=== PATIENT | female | born 1995 | race African-American/Black ===

== ENCOUNTER 2018-08-04 10:11 | Emergency (ER) | payer MEDICAID ==
[~2018-08-04] VITALS: Ht 167.6 cm; Wt 76.4 kg
[~2018-08-04 10:11] MED LIST: GLUCOPHAGE500 MG PO; IBUPROFEN600 MG PO; PERCOCET 5-3251 TAB PO; PRENATAL COMPLE1 TAB PO
[2018-08-04 10:13] VITALS: Ht 167.6 cm; Wt 76.4 kg
[2018-08-04 10:49] LABS: BASOPHILS 0.6 % (0-2); EOSINOPHILS 1.2 % (0-7); HEMATOCRIT 41.5 % (36.0-48.0); HEMOGLOBIN 13.7 g/dL (12-16); IMMATURE GRANULOCYTES 0.2 % (0-5); MCH 26.4 pg (26.0-34.0); MEAN PLATELET VOLUME 9.7 fL (7.4-10.4); MONOCYTES 6.5 % (2-11); NEUTROPHILS 72.5 % (40-80); PLATELET COUNT 368 10x3/uL (130-400); RBC 5.19 10x6/uL (4.00-5.40); RDW 13.6 % (11.5-14.5); WBC 10.9 10x3/uL (4.8-10.8)
[2018-08-04 10:55] LABS: ALBUMIN 3.5 g/dL (3.4-5.0); ALKALINE PHOSPHATASE 79 U/L (46-116); ALT (SGPT) 16 U/L (10-68); BILIRUBIN - TOTAL 0.45 mg/dL (0.2-1.3); CALC OSMOLALITY 278 mosm/kg (275-300); CARBON DIOXIDE 26.8 mmol/L (21.0-32.0); CHLORIDE - SERUM 101 mmol/L (98-107); CREATININE - SERUM 0.6 mg/dL (0.6-1.3); PROTEIN - SERUM 8.4 g/dL (6.4-8.2); SODIUM 136 mmol/L (136-145); UREA NITROGEN 4 mg/dL (7-18); eGFR NON AFRICAN AMERICAN > 90 mL/min (90-120)
[2018-08-04 10:56] LABS: GLUCOSE 273 mg/dL (74-106)
[2018-08-04 11:06] LABS: CREATINE KINASE 140 UL (21-215); MAGNESIUM - SERUM 1.6 mg/dL (1.8-2.4); TROPONIN-I < 0.017 ng/mL (0.000-0.060)
[2018-08-04 11:11] LABS: APTT 21.3 SECONDS (22.8-39.4); INR 1.02 (0.85-1.17); PROTIME 12.9 SECONDS (11.6-15.0)
[2018-08-04 11:14] LABS: AMYLASE - SERUM 55 U/L (25-115); LIPASE 131 U/L (73-393)
[2018-08-04 12:15] LABS: APPEARANCE CLEAR (CLEAR); BILIRUBIN NEGATIVE (NEGATIVE); COLOR YELLOW (YELLOW); GLUCOSE 1000 mg/dL (NEGATIVE); KETONE NEGATIVE (NEGATIVE); NITRITE NEGATIVE (NEGATIVE); PROTEIN NEGATIVE (NEGATIVE); SPECIFIC GRAVITY 1.015 (1.005-1.020); UROBILINOGEN NORMAL (NORMAL)
[2018-08-04] MEDS ORDERED: ZANTAC300 MG PO (13:25)
[2018-08-04] MEDS ORDERED: MAG-OX 400 MG400 MG PO (13:25)
[2018-08-04] MEDS ORDERED: GLUCOPHAGE500 MG PO (13:25)
[2018-08-04] MEDS ORDERED: PROTONIX20 MG PO (13:25)
[2018-08-04 14:33] VITALS: BP 133/68
== END 2018-08-04 14:35 | disposition home or self-care (01) ==
LOC: D.ER 10:11
PROVIDERS: Family Medicine
DX: K21.0 Gastro-esophageal reflux disease with esophagitis (principal); E83.42 Hypomagnesemia; E11.65 Type 2 diabetes mellitus with hyperglycemia

== ENCOUNTER 2018-11-22 14:56 | Emergency (ER) | payer MEDICAID ==
[~2018-11-22] VITALS: Ht 167.6 cm; Wt 76.4 kg
[~2018-11-22 14:56] MED LIST changes: +MAG-OX 400 MG400 MG PO; +PROTONIX20 MG PO; +ZANTAC300 MG PO
[2018-11-22 15:05] VITALS: BP 118/60; Ht 167.6 cm; Wt 76.4 kg
[2018-11-22] MEDS ORDERED: TORADOL10 MG PO (17:57)
== END 2018-11-22 18:46 | disposition home or self-care (01) ==
LOC: D.ER 14:56
DX: G43.909 Migraine, unspecified, not intractable, without status migrainosus (principal)

== ENCOUNTER 2019-01-31 21:39 | Emergency (ER) | payer MEDICAID ==
[~2019-01-31] VITALS: Ht 167.6 cm; Wt 75.0 kg
[~2019-01-31 21:39] MED LIST changes: +TORADOL10 MG PO
[2019-01-31 21:58] VITALS: Ht 167.6 cm; Wt 75.0 kg
[2019-01-31] MEDS ORDERED: NOVOLOG100 UNIT/1 SC (21:59)
[2019-01-31 22:22] LABS: BASOPHILS 0.1 % (0-2); EOSINOPHILS 0.3 % (0-7); HEMATOCRIT 39.9 % (36.0-48.0); HEMOGLOBIN 12.4 g/dL (12-16); IMMATURE GRANULOCYTES 0.2 % (0-5); LYMPHOCYTES 9.2 % (15-50); MCH 25.6 pg (26.0-34.0); MCHC 31.1 g/dL (31.0-37.0); MCV 82.4 fL (80.0-100.0); MEAN PLATELET VOLUME 9.1 fL (7.4-10.4); MONOCYTES 6.1 % (2-11); NEUTROPHILS 84.1 % (40-80); PLATELET COUNT 349 10x3/uL (130-400); RBC 4.84 10x6/uL (4.00-5.40); RDW 13.9 % (11.5-14.5)
[2019-01-31 22:24] LABS: APPEARANCE CLOUDY (CLEAR); COLOR YELLOW (YELLOW)
[2019-01-31 22:25] LABS: BILIRUBIN NEGATIVE (NEGATIVE); GLUCOSE 1000 mg/dL (NEGATIVE); KETONE MODERATE mg/dL (NEGATIVE); NITRITE NEGATIVE (NEGATIVE); PROTEIN 1+ mg/dL (NEGATIVE); SPECIFIC GRAVITY 1.015 (1.005-1.020); UROBILINOGEN NORMAL (NORMAL)
[2019-01-31 22:26] LABS: EPITHELIAL CELLS 0-5 /hpf (0-5); RED CELLS - URINE 0-5 /hpf (0-5)
[2019-01-31 22:27] LABS: BACTERIA MODERATE /hpf (NEGATIVE)
[2019-01-31 22:30] LABS: CALC OSMOLALITY 287 mosm/kg (275-300); CALCIUM 8.2 mg/dL (8.5-10.1); CARBON DIOXIDE 27.4 mmol/L (21.0-32.0); CHLORIDE - SERUM 103 mmol/L (98-107); CREATININE - SERUM 0.7 mg/dL (0.6-1.3); GLUCOSE 273 mg/dL (74-106); KETONE - SERUM NEGATIVE (NEGATIVE); POTASSIUM - SERUM 3.2 mmol/L (3.5-5.1); SODIUM 141 mmol/L (136-145); UREA NITROGEN 5 mg/dL (7-18); eGFR NON AFRICAN AMERICAN > 90 mL/min (90-120)
[2019-01-31 22:32] LABS: HCG SERUM NEGATIVE (NEGATIVE)
[2019-01-31 22:36] LABS: ALBUMIN 3.1 g/dL (3.4-5.0); ALKALINE PHOSPHATASE 66 U/L (46-116); ALT (SGPT) 16 U/L (10-68); BILIRUBIN - TOTAL 0.34 mg/dL (0.2-1.3); PROTEIN - SERUM 7.5 g/dL (6.4-8.2)
[2019-01-31] MEDS ORDERED: PHENAZOPYRIDIN200 MG PO (22:57)
[2019-01-31] MEDS ORDERED: LEVOFLOXACIN500 MG PO (22:57)
[2019-01-31 23:41] VITALS: BP 112/72
== END 2019-01-31 23:58 | disposition home or self-care (01) ==
LOC: D.ER 21:39
PROVIDERS: Emergency Medicine
DX: N30.00 Acute cystitis without hematuria (principal); E11.9 Type 2 diabetes mellitus without complications